=== PATIENT | female | born 1940 | race Caucasian/White ===

== ENCOUNTER → 2019-05-31 09:44 | Emergency (ER) | payer MEDICARE, BC ==
--- NOTE | 2019-05-31 11:32 | UC ---
Lower Extremity/Ankle HPI - HPI Summary HPI Summary: 4 DAYS AGO TRIPPED AND FELL INJURING HER LEFT FOOT/ANKLE. STRAINED HER CALF MUSCLE WHICH SHE STATES IS BETTER BUT HAS PERSISTENT PAIN TO THE LEFT MEDIAL ANKLE WITH AMBULATING. AREA IS STILL SWOLLEN. - History of Current Complaint Chief Complaint: UCLowerExtremity Stated Complaint: LEFT FOOT PAIN Time Seen by Provider: 05/31/19 11:22 Hx Obtained From: Patient Onset/Duration: Sudden Onset, Lasting Days, Still Present Severity Initially: Moderate Severity Currently: Moderate Pain Intensity: 9 Pain Scale Used: 0-10 Numeric Aggravating Factor(s): Standing, Ambulation Alleviating Factor(s): Rest, Elevation Able to Bear Weight: Yes - Allergies/Home Medications Allergies/Adverse Reactions: Allergies Allergy/AdvReac Type Severity Reaction Status Date / Time nisoldipine Allergy Unknown Verified 05/31/19 10:15 Reaction Details tartrazine Allergy Unknown Uncoded 05/31/19 10:15 Reaction Details PMH/Surg Hx/FS Hx/Imm Hx Cardiovascular History: Hypertension Cancer History: Breast Cancer - Surgical History Surgical History: Yes Surgery Procedure, Year, and Place: BROKEN RADIUS AND CRUSHED LT WRIST 09/07, RT BREAST LUMPECTOMY 10/09 WITH RADIATION, GALLBLADER 09/09, CATARACTS 01/11, PARATHYROIDECTOMY 05/14. - Family History Known Family History: Positive: Cardiac Disease - Social History Alcohol Use: Occasionally Substance Use Type: None Smoking Status (MU): Never Smoked Tobacco Review of Systems All Other Systems Reviewed And Are Negative: Yes Constitutional: Positive: Negative Skin: Positive: Negative Respiratory: Positive: Negative Cardiovascular: Positive: Negative Gastrointestinal: Positive: Negative Musculoskeletal: Positive: Arthralgia, Decreased ROM, Edema Physical Exam Triage Information Reviewed: Yes Appearance: Well-Appearing, No Pain Distress, Well-Nourished Vital Signs: Initial Vital Signs Temp 97.9 F 05/31/19 10:08 Pulse 60 05/31/19 10:08 Resp 18 05/31/19 10:08 BP 135/65 05/31/19 10:08 Pulse Ox 100 05/31/19 10:08 Vital Signs Reviewed: Yes Eyes: Positive: Conjunctiva Clear ENT: Positive: Hearing grossly normal Neck: Positive: Supple Respiratory: Positive: No respiratory distress, No accessory muscle use Cardiovascular: Positive: Pulses Normal Abdomen Description: Positive: Soft Musculoskeletal: Positive: ROM Limited @ - LEFT ANKLE, Edema @ - LEFT ANKLE, Other: - TTP JUST DISTAL TO LEFT MEDIAL MALEOULUS Neurological: Positive: Alert Psychological: Positive: Age Appropriate Behavior Skin: Negative: Rashes Diagnostics - Radiology LEFT FOOT XRAYS Radiology Interpretation Completed By: Radiologist Summary of Radiographic Findings: OSTEOARTHRITIS. NO ACUTE OSSEOUS INJURY. LEFT ANKLE XRAYS Radiology Interpretation Completed By: Radiologist Summary of Radiographic Findings: DIFFUSE SOFT TISSUE SWELLING AND PROBABLE SMALL AVULSION FRACTURE FRAGMENTS ARISING FROM THE MEDIAL TALUS OR CALCANEUS. Lower Extremity Course/Dx - Course Course Of Treatment: LEFT ANKLE X-RAYS WITH DIFFUSE SOFT TISSUE SWELLING AND PROBABLE SMALL AVULSION FRACTURE FRAGMENTS ARISING FROM THE MEDIAL TALUS OR CALCANEUS. CAM BOOT APPLIED BY RN. PATIENT DECLINES CRUTCHES. STATES SHE CANNOT NEGOTIATE CRUTCHES AND IS MORE UNSTABLE WITH THEM THAT WITHOUT THEM. ADVISED TO LIMIT HER WEIGHTBEARING AND FOLLOW-UP WITH ORTHOPEDICS. - Differential Dx/Diagnosis Provider Diagnosis: Ankle fracture, left Discharge ED - Sign-Out/Discharge Documenting (check all that apply): Patient Departure All imaging exams completed and their final reports reviewed: Yes - Discharge Plan Condition: Stable Disposition: HOME Patient Education Materials: Ankle Fracture (ED) Referrals: Hanna Kirkland MD [Medical Doctor] - 2 Days Ignacio Kasper MD [Primary Care Provider] - If Needed Additional Instructions: LEFT ANKLE XRAY SHOWS DIFFUSE SOFT TISSUE SWELLING AND PROBABLE SMALL AVULSION FRACTURE FRAGMENTS ARISING FROM THE MEDIAL TALUS OR CALCANEUS. CALL ORTHOPEDICS TODAY FOR AN APPOINTMENT. KEEP THE CAM BOOT ON TO HELP WITH DISCOMFORT AND MOBILITY. LIMIT WEIGHTBEARING TO NEEDED. REST, ICE, ELEVATE. - Billing Disposition and Condition Condition: STABLE Disposition: Home
[2019-05-31 12:52] VITALS: BP 132/74
== END | disposition home or self-care (01) ==
LOC: UCEAST 09:44
DX: S82.892A Other fracture of left lower leg, initial encounter for closed fracture (principal); I10 Essential (primary) hypertension; Z88.8 Allergy status to other drugs, medicaments and biological substances; Z85.3 Personal history of malignant neoplasm of breast; Z91.02 Food additives allergy status; W01.0XXA Fall on same level from slipping, tripping and stumbling without subsequent striking against object, initial encounter; Y92.9 Unspecified place or not applicable